=== PATIENT | female | born 1985 | race Hispanic/Latino ===

== ENCOUNTER → 2023-01-26 | Day surgery (SDC) | payer BC ==
[~2023-01-26] VITALS: Ht 162.6 cm; Wt 81.3 kg
[~2023-01-26] MED LIST: ACETAMINOPHEN 1000MG 100ML IV BAG As Ordered ONE; FERR325T81 PO; GENTAMICIN SULF 80MG/2ML VIAL As Ordered ONE; HEPARIN SOD (PORCINE) 5000UNITS/ML 1ML VIAL/SYRINGE SQ ONE; IRON240T PO; IRON27TA2 PO; LIDOCAINE 2% 100MG/5ML SDV (FOR ANES.) As Ordered ONE; LR 1,000 ML IV SCH; MIDAZOLAM INJ 2MG/2ML VIAL As Ordered ONE; OMEP40CA4 PO; ONDANSETRON 4MG 2ML VIAL As Ordered ONE; ROCURONIUM BROMIDE 50MG/5ML VIAL As Ordered ONE; SUGAMMADEX SODIUM 500 MG/5 ML VIAL (BRIDION) As Ordered ONE; ceFAZolin SOD 2 GM in IV 1 EA IV ONE; fentaNYL 250 MCG/5 ML INJECTION As Ordered ONE; propofoL 200 MG/20 ML VIAL As Ordered ONE
[2023-01-26 11:25] VITALS: BP 121/72; TEMP 98.5; O2SAT 100
[2023-01-26 14:43] LABS: HEMATOCRIT 28.1 % (36.0-47.0); HEMOGLOBIN 8.2 g/dl (12.0-15.5); MEAN CORPUSCULAR HEMOGLOBIN 21.4 pg (27.0-33.0); MEAN CORPUSCULAR HGB CONC 29.2 g/dl (32.0-36.5); MEAN CORPUSCULAR VOLUME 73.2 fl (80.0-96.0); PLATELET COUNT, AUTOMATED 223 10^3/uL (150-450); RED BLOOD COUNT 3.84 10^6/uL (4.00-5.40); WHITE BLOOD COUNT 6.5 10^3/uL (4.0-10.0)
== END | disposition home or self-care (01) ==
LOC: M SDC 11:05
PROVIDERS: ATTEND Plastic Surgery Surgery of the Hand
DX: M54.06 Panniculitis affecting regions of neck and back, lumbar region (principal); Z53.09 Procedure and treatment not carried out because of other contraindication; D64.9 Anemia, unspecified
CPT/HCPCS: 36415; 85027; 86850; 86900; 86901; 87635; C9290; J0665; J1580; J2250; J3010

== ENCOUNTER 2023-06-29 09:14 | Observation (INO) | payer BC ==
[~2023-06-29] VITALS: Ht 162.6 cm; Wt 88.6 kg
[~2023-06-29 09:14] MED LIST changes: -ACETAMINOPHEN 1000MG 100ML IV BAG As Ordered ONE; -GENTAMICIN SULF 80MG/2ML VIAL As Ordered ONE; -LIDOCAINE 2% 100MG/5ML SDV (FOR ANES.) As Ordered ONE; -LR 1,000 ML IV SCH; -MIDAZOLAM INJ 2MG/2ML VIAL As Ordered ONE; -ONDANSETRON 4MG 2ML VIAL As Ordered ONE; -ROCURONIUM BROMIDE 50MG/5ML VIAL As Ordered ONE; -SUGAMMADEX SODIUM 500 MG/5 ML VIAL (BRIDION) As Ordered ONE; -fentaNYL 250 MCG/5 ML INJECTION As Ordered ONE; -propofoL 200 MG/20 ML VIAL As Ordered ONE
[2023-06-29] MEDS ORDERED: LR 1,000 ML IV SCH ×2 (11:10→17:30)
[2023-06-29] MEDS ORDERED: dexmedeTOMIDine (4MCG/ML)200MCG/50ML BTL (PRECEDEX) As Ordered ONE (11:53)
[2023-06-29] MEDS ORDERED: LIDOCAINE 2% 100MG/5ML SDV (FOR ANES.) As Ordered ONE (11:53)
[2023-06-29] MEDS ORDERED: propofoL 200 MG/20 ML VIAL As Ordered ONE (11:53)
[2023-06-29] MEDS ORDERED: ROCURONIUM BROMIDE 50MG/5ML VIAL As Ordered ONE ×3 (11:53→15:29)
[2023-06-29] MEDS ORDERED: SUGAMMADEX SODIUM 500 MG/5 ML VIAL (BRIDION) As Ordered ONE (11:53)
[2023-06-29] MEDS ORDERED: ONDANSETRON 4MG 2ML VIAL As Ordered ONE (11:53)
[2023-06-29] MEDS ORDERED: MIDAZOLAM INJ 2MG/2ML VIAL As Ordered ONE (11:54)
[2023-06-29] MEDS ORDERED: fentaNYL 250 MCG/5 ML INJECTION As Ordered ONE (11:54)
[2023-06-29] MEDS ORDERED: VITMTA PO (11:55)
[2023-06-29] MEDS ORDERED: MED REC IN PROGRESS XX SCH (11:55)
[2023-06-29] MEDS ORDERED: HOME MED LIST COMPLETE! XX SCH (12:00)
[2023-06-29] MEDS ORDERED: GENTAMICIN SULF 80MG/2ML VIAL As Ordered ONE (13:02)
[2023-06-29] MEDS ORDERED: ACETAMINOPHEN 1000MG 100ML IV BAG As Ordered ONE (14:44)
[2023-06-29] MEDS ORDERED: HYDROmorphone HCL 2MG/ML 1ML VIAL As Ordered ONE (14:59)
[2023-06-29] MEDS ORDERED: LACRILUBE (AKWA TEARS) OPHTH OINT 3.5GM As Ordered ONE (14:59)
[2023-06-29] MEDS ORDERED: fentaNYL 100 MCG/2 ML INJECTION IV PRN (17:30)
[2023-06-29] MEDS ORDERED: HYDROMORPHONE HCL 0.5 MG/ 0.5 ML SYRINGE IV PRN (17:30)
[2023-06-29] MEDS ORDERED: ONDANSETRON 4MG 2ML VIAL IV PRN ×2 (17:30→18:15)
[2023-06-29] MEDS ORDERED: oxyCODONE 5MG TAB PO PRN ×2 (17:30→18:15)
[2023-06-29] MEDS ORDERED: ceFAZolin 2 GM/D5W 50 ML IV BAG As Ordered ONE (17:31)
[2023-06-29] MEDS ORDERED: traMADol 50 MG TAB PO PRN (18:15)
[2023-06-29 18:53] VITALS: BP 105/60; TEMP 97.7; O2SAT 99
[2023-06-29 19:12] VITALS: BP 106/62; TEMP 97.7; O2SAT 99
[2023-06-29] MEDS: FERROUS SULFATE 325MG TAB PO SCH (20:27)
[2023-06-29 20:48] VITALS: BP 101/61; TEMP 98.6; O2SAT 98
[2023-06-29] MEDS: LR 1,000 ML IV SCH (21:48)
[2023-06-29] MEDS: ceFAZolin SOD 1 GM in D5W MINI-BAG PLUS 50 ML IV SCH (21:49)
[2023-06-29 22:00] VITALS: BP 110/65; TEMP 97.9; O2SAT 98
[2023-06-30 01:25] VITALS: BP 105/62; TEMP 98.2; O2SAT 97
[2023-06-30] MEDS: ACETAMINOPHEN TAB 650MG DOSE (2X325MG) PO PRN ×2 (04:09→10:14)
[2023-06-30] MEDS: ceFAZolin SOD 1 GM in D5W MINI-BAG PLUS 50 ML IV SCH (06:18)
[2023-06-30] MEDS: LR 1,000 ML IV SCH (06:18)
[2023-06-30 06:24] LABS: HEMATOCRIT 28.5 % (36.0-47.0); HEMOGLOBIN 9.6 g/dl (12.0-15.5); MEAN CORPUSCULAR HEMOGLOBIN 30.3 pg (27.0-33.0); MEAN CORPUSCULAR HGB CONC 33.7 g/dl (32.0-36.5); MEAN CORPUSCULAR VOLUME 89.9 fl (80.0-96.0); PLATELET COUNT, AUTOMATED 282 10^3/uL (150-450); RED BLOOD COUNT 3.17 10^6/uL (4.00-5.40); WHITE BLOOD COUNT 11.4 10^3/uL (4.0-10.0)
[2023-06-30 06:29] VITALS: BP 111/67; TEMP 98; O2SAT 98
[2023-06-30] MEDS: FERROUS SULFATE 325MG TAB PO SCH (08:48)
[2023-06-30] MEDS ORDERED: OMEPRAZOLE 20MG CAP PO SCH (09:00)
[2023-06-30] MEDS ORDERED: TRAM50TA2 PO (09:38)
[2023-06-30 10:00] VITALS: BP 108/65; TEMP 98.1; O2SAT 98
== END 2023-06-30 13:15 | disposition home or self-care (01) ==
LOC: M SDC 09:14 → M MS5PR 18:21
PROVIDERS: ADMIT Plastic Surgery Surgery of the Hand; ATTEND Plastic Surgery Surgery of the Hand
DX: M54.07 Panniculitis affecting regions of neck and back, lumbosacral region (principal); L98.7 Excessive and redundant skin and subcutaneous tissue; K21.9 Gastro-esophageal reflux disease without esophagitis; J45.909 Unspecified asthma, uncomplicated; Z98.84 Bariatric surgery status; Z79.899 Other long term (current) drug therapy
CPT/HCPCS: 15830; 15847; 36415; 81025; 85027; 87635; 88300; 96361; 96365; 96366; 96375; C9290; J0131; J0665; J0690; J1100; J1170; J1580; J2250; J2405; J3010